=== PATIENT | male | born 1955 | race Two or more races ===

== ENCOUNTER 2016-05-02 20:00 | Emergency (ER) | payer BC ==
[~2016-05-02 20:00] MED LIST: FLEXERIL-DPS10 MG PO; FLOMAX DPS0.4 MG PO; GLUCOSAMINE1000 MG PO; LISINOPRIL-HCT1 EAC1 PO; MIRALAX17 GM PO; NORVASC5 MG PO; OXY IR DPS5 MG PO; PROSCAR DPS5 MG PO; SENOKOT S1 TAB PO; TYLENOL DPS325 MG PO; ULTRAM DPS50 MG PO; XARELTO10 MG PO
--- NOTE | 2016-05-05 07:42 | ER ---
ADMIT: 05/02/2016 RM/LOC: ER [facility] MR#: [id number] [place], [place] [id number] [place] [address] [place] [address] Emergency Room Report SEX: M AGE: 60 : 1955 DATE: 05/02/2016 TIME: 2000 hours. Please refer to my T-sheet for complete H and P. HISTORY OF PRESENT ILLNESS: Briefly, the patient is a 60-year-old, comes in. He has a known ventral wall hernia. He said it has been hurting worse, and he was always told it starts hurting to come in. No vomiting. No diarrhea. No fevers. No other complaints. PHYSICAL EXAMINATION: VITAL SIGNS: Stable. ABDOMEN: He has a hernia that is easily reducible above his umbilicus central. He said that is exactly where his pain is. EMERGENCY DEPARTMENT COURSE: CBC was normal. Chemistries and lipase all normal. I had a long discussion when he was ready for discharge. Gave him 1 g of Tylenol. ASSESSMENT: Ventral hernia with some increased pain recently. No evidence of other abnormality. PLAN: Follow up with the surgeon. I gave him the number of Dr. Chairez. Return if worse. Tylenol or Motrin. John Bro MD/ julien JOB #: [id number] CC: Juan Klein MD, Attending Physician Lisandro Chairez MD, Family Physician
== END 2016-05-02 21:16 | disposition home or self-care (01) ==
LOC: ER 20:00
DX: K43.9 Ventral hernia without obstruction or gangrene (principal); I10 Essential (primary) hypertension; Z79.899 Other long term (current) drug therapy